=== PATIENT | male | born 1960 | race Two or more races ===

== ENCOUNTER 2017-03-08 05:26 | Emergency (ER) | payer MEDICAID ==
[~2017-03-08] VITALS: Ht 167.6 cm; Wt 81.3 kg
[2017-03-08] MEDS ORDERED: SITA100T PO (05:53)
[2017-03-08] MEDS ORDERED: CHOL500014 PO (05:53)
[2017-03-08] MEDS ORDERED: OMEG-133 PO (05:53)
[2017-03-08] MEDS ORDERED: ASPI-496 PO (05:53)
[2017-03-08] MEDS ORDERED: METF-649 PO (05:53)
[2017-03-08] MEDS ORDERED: SODIUM CHLORIDE 0.9% 1,000 ML IV ONE (07:18)
[2017-03-08] MEDS ORDERED: MECLIZINE CHEWABLE 25 MG TAB PO ONE (07:30)
[2017-03-08] MEDS ORDERED: LORazepam 2 MG/ML, 1ML IVPush ONE (07:30)
[2017-03-08] MEDS ORDERED: ONDANSETRON 2MG/ML, 2ML IVPush ONE (07:30)
[2017-03-08] MEDS ORDERED: LORazepam 2 MG/ML, 1ML ONE (08:17)
[2017-03-08] MEDS ORDERED: MECLIZINE CHEWABLE 25 MG TAB ONE (08:17)
[2017-03-08] MEDS ORDERED: ONDANSETRON 2MG/ML, 2ML ONE (08:17)
[2017-03-08 08:20] LABS: ASPARTATE AMINO TRANSFERASE 24 U/L (15-37); BLOOD UREA NITROGEN 17 mg/dL (7-18)
[2017-03-08 11:01] VITALS: BP 117/77
== END 2017-03-08 11:03 | disposition home or self-care (01) ==
LOC: EDBD 05:26 → ED 08:37
DX: H81.11 Benign paroxysmal vertigo, right ear (principal); E11.9 Type 2 diabetes mellitus without complications; Z79.82 Long term (current) use of aspirin
CPT/HCPCS: 36415; 70450; 70551; 71010; 80053; 85025; 85610; 93005; 96361; 96374; 96375; 99285; J2060; J2405; J7030